=== PATIENT | female | born 1965 | race Caucasian/White ===

== ENCOUNTER 2019-04-11 22:14 | Emergency (ER) | payer MEDICARE, MEDICAID ==
[~2019-04-11] VITALS: Ht 165.1 cm; Wt 98.2 kg
[2019-04-11] MEDS ORDERED: PROP60CA PO (22:32)
[2019-04-11] MEDS ORDERED: VITA500T40 PO (22:32)
[2019-04-11] MEDS ORDERED: OMEP10CASR PO (22:32)
[2019-04-11] MEDS ORDERED: TRAM50TA2 PO (22:32)
[2019-04-11] MEDS ORDERED: CLAR10CA3 PO (22:32)
[2019-04-11] MEDS ORDERED: MONT10TA2 PO (22:32)
[2019-04-11] MEDS ORDERED: FLON1SPR NARES (22:32)
[2019-04-11] MEDS ORDERED: DICL1GEL3 TOP (22:32)
[2019-04-11] MEDS ORDERED: IRONTAB3 PO (22:32)
[2019-04-11] MEDS ORDERED: LEVO88TA3 PO (22:32)
[2019-04-11] MEDS ORDERED: VENTAER INH (22:32)
[2019-04-11] MEDS ORDERED: VITA1CAP25 PO (22:32)
[2019-04-11] MEDS ORDERED: TREL1AER PO (22:32)
[2019-04-12 03:40] VITALS: BP 139/87
--- NOTE | 2019-04-12 09:49 | REP ---
Two views right humerus: 04/12/2019. Indication: Right humeral trauma. Comparison: None. Findings: There is no acute fracture, subluxation or dislocation. No acute post traumatic. Soft tissue injuries are detected. Impression: No acute fracture. Electronically Signed by Mehran Farfan DO 04/12/2019 09:41 A
== END 2019-04-12 04:31 | disposition home or self-care (01) ==
LOC: M ED 22:14
DX: S50.01XA Contusion of right elbow, initial encounter (principal); V40.5XXA Car driver injured in collision with pedestrian or animal in traffic accident, initial encounter; Y92.411 Interstate highway as the place of occurrence of the external cause; Y99.8 Other external cause status; Z88.5 Allergy status to narcotic agent; Z88.6 Allergy status to analgesic agent; Z88.8 Allergy status to other drugs, medicaments and biological substances; K21.9 Gastro-esophageal reflux disease without esophagitis; G43.909 Migraine, unspecified, not intractable, without status migrainosus; R01.1 Cardiac murmur, unspecified; J45.909 Unspecified asthma, uncomplicated; K58.9 Irritable bowel syndrome, unspecified; E03.9 Hypothyroidism, unspecified; Z79.891 Long term (current) use of opiate analgesic; Z79.899 Other long term (current) drug therapy